=== PATIENT | female | born 1980 | race Two or more races ===

== ENCOUNTER 2019-05-04 07:00 | Day surgery (SDC) | payer OTHER ==
[~2019-05-04 07:00] MED LIST: DICLOFENAC SODI75 MG PO; HORIZANT300 MG PO; MICROZIDE12.5 MG PO
== END 2019-05-04 17:40 | disposition home or self-care (01) ==
LOC: CIR.AMB 07:00
DX: N84.0 Polyp of corpus uteri (principal)

== ENCOUNTER 2020-08-31 08:37 | Outpatient (CLI) | payer OTHER | END 2020-08-31 08:44 | disposition home or self-care (01) | LOC: LAB 08:37 | PROVIDERS: ATTEND Obstetrics & Gynecology | DX: R79.1 Abnormal coagulation profile (principal); N92.6 Irregular menstruation, unspecified; R10.2 Pelvic and perineal pain ==

== ENCOUNTER 2020-09-03 11:00 | Inpatient (IN) | payer OTHER ==
[~2020-09-03] VITALS: Ht 175.3 cm; Wt 73.9 kg
[2020-09-03] MEDS ORDERED: HYDROCHLOROTHIA25 MG PO (14:35)
[2020-09-03] MEDS ORDERED: BUSPIRONE HCL10 MG PO (14:36)
[2020-09-03] MEDS ORDERED: OMEPRAZOLE20 M1 PO (14:36)
[2020-09-03] MEDS ORDERED: ZESTRIL10 M1 PO (14:36)
[2020-09-06] MEDS ORDERED: PEPCID AC20 MG PO ×2 (09:29)
[2020-09-06] MEDS ORDERED: ULTRACET PO ×2 (09:30)
[2020-09-06] MEDS ORDERED: COLACE100 MG PO ×2 (09:31)
[2020-09-06] MEDS ORDERED: KETO10TA2 PO ×2 (09:31)
== END 2020-09-06 11:52 | disposition home or self-care (01) | DRG 743 ==
LOC: O/R 09-05 05:45 → OB/GYN 09-05 05:45
PROVIDERS: ADMIT Obstetrics & Gynecology; ATTEND Obstetrics & Gynecology
PROC: 0UB74ZZ Excision of Bilateral Fallopian Tubes, Percutaneous Endoscopic Approach (ICD-10-PCS; 2020-09-05)
PROC: 0UT94ZZ Resection of Uterus, Percutaneous Endoscopic Approach (ICD-10-PCS; principal; 2020-09-05 07:00)
DX: N72 Inflammatory disease of cervix uteri (principal); D25.2 Subserosal leiomyoma of uterus; N80.0 Endometriosis of uterus; N93.9 Abnormal uterine and vaginal bleeding, unspecified; I10 Essential (primary) hypertension

== ENCOUNTER 2020-09-25 11:35 | Inpatient (IN) | payer OTHER ==
[~2020-09-25] VITALS: Ht 175.3 cm; Wt 73.9 kg
[~2020-09-25 11:35] MED LIST changes: +BUSPIRONE HCL10 MG PO; +COLACE100 MG PO; +HYDROCHLOROTHIA25 MG PO; +KETO10TA2 PO; +OMEPRAZOLE20 M1 PO; +PEPCID AC20 MG PO; +ULTRACET PO; +ZESTRIL10 M1 PO
== END 2020-09-26 10:10 | disposition home or self-care (01) | DRG 761 ==
LOC: ER 11:35 → SEC-K 12:47 → O/R 12:47
PROVIDERS: ADMIT Obstetrics & Gynecology; ATTEND Obstetrics & Gynecology
PROC: 0UQG7ZZ Repair Vagina, Via Natural or Artificial Opening (ICD-10-PCS; principal; 2020-09-25 15:45)
DX: N89.8 Other specified noninflammatory disorders of vagina (principal); N93.8 Other specified abnormal uterine and vaginal bleeding; I10 Essential (primary) hypertension